=== PATIENT | male | born 1980 | race Caucasian/White ===

== ENCOUNTER → 2020-11-07 | Outpatient (CLI) | payer OTHER ==
[~2020-11-07] MED LIST: DOME-PASTE BANDA1 EA TOP; FUROSEMIDE40 MG PO; HYDROCORTISONE TOP; K-DUR TAB 10 M10 MEQ PO; K-DUR TAB 20 M20 MEQ PO; KEFLEX CAP 500500 MG PO; LASIX 40 MG TAB40 MG PO; LASIX TAB 20 MG20 MG PO; LASIX40 MG PO; LISINOPRIL10 MG PO; NAPROSYN500 MG PO; NEURONTIN300 MG PO; VIBERZI PO
== END ==
LOC: US 11-02 13:30
DX: M79.605 Pain in left leg (principal); M79.604 Pain in right leg
CPT/HCPCS: 93970